=== PATIENT | male | born 1960 | race Caucasian/White ===

== ENCOUNTER 2019-06-20 21:08 | Emergency (ER) | payer MEDICARE, MEDICAID ==
[~2019-06-20 21:08] MED LIST: CHLO25CA10 PO; ONDA8TAB9 PO; POTA10TA36 PO; PRED50TA PO
--- NOTE | 2019-06-20 21:24 | NUR ---
PATIENTS BLOOD PRESSURE TAKEN IN TRIAGE AND IS 139/83 AFTER THE PATIENT TOOK AN ADDITIONAL DOSE OF HIS LISINOPRIL. HE STATED THAT HE CHECKED IT RANDOMLY AT [facility] AND NOTICED IT WAS 180 SYSTOLIC THEN TOOK THE LISINOPRIL. HE WAS HAVING NO SYMPTOMS AND DECIDED TO LEAVE BEFORE TRIAGE WAS COMPLETED HIS BLOOD PRESSURE WAS MORE NORMAL.
[2019-06-20 21:45] VITALS: BP 139/83
== END 2019-06-20 21:48 | disposition left against medical advice (07) ==
LOC: ER 21:10
DX: R03.0 Elevated blood-pressure reading, without diagnosis of hypertension (principal); Z53.21 Procedure and treatment not carried out due to patient leaving prior to being seen by health care provider

== ENCOUNTER 2023-03-16 11:00 | Day surgery (SDC) | payer MEDICARE, MEDICAID ==
[~2023-03-16] VITALS: Ht 177.8 cm; Wt 112.1 kg
[~2023-03-16 11:00] MED LIST changes: +POTA-206 PO; -POTA10TA36 PO
[2023-03-16 11:25] VITALS: BP 140/83; PULSE 90; RESP 16; TEMP 97.7; O2SAT 92
[2023-03-16] MEDS ORDERED: LISI40TA13 PO (11:34)
[2023-03-16] MEDS ORDERED: FLUT1BLS3 INH (11:34)
[2023-03-16] MEDS ORDERED: LEVO25TA7 PO (11:34)
[2023-03-16] MEDS ORDERED: AMLO-708 PO (11:34)
[2023-03-16] MEDS ORDERED: BUPR1FIL3 SL (11:34)
[2023-03-16] MEDS ORDERED: DAPA10TA PO (11:34)
[2023-03-16] MEDS ORDERED: SILD100T70 PO (11:34)
[2023-03-16] MEDS ORDERED: IBUP-1986 PO (11:34)
[2023-03-16] MEDS ORDERED: ALBU18HF2 INH (11:34)
[2023-03-16] MEDS ORDERED: ATOR40TA72 PO (11:34)
[2023-03-16 12:00] VITALS: BP 147/90; PULSE 82; RESP 16; O2SAT 92
[2023-03-16 12:05] VITALS: BP 155/90; PULSE 83; RESP 15; O2SAT 92
[2023-03-16 12:10] VITALS: BP 163/95; PULSE 80; RESP 17; O2SAT 92
== END 2023-03-16 12:25 | disposition home or self-care (01) ==
LOC: SSTAY O 11:00
PROVIDERS: ATTEND Radiology Vascular & Interventional Radiology
DX: R59.0 Localized enlarged lymph nodes (principal); Z79.1 Long term (current) use of non-steroidal anti-inflammatories (NSAID); Z79.890 Hormone replacement therapy; Z79.899 Other long term (current) drug therapy
CPT/HCPCS: 38505; 76942